=== PATIENT | male | born 1950 | race Caucasian/White ===

== ENCOUNTER 2019-02-28 12:35 | Outpatient (CLI) | payer OTHER | END 2019-02-28 23:59 | disposition home or self-care (01) | LOC: CARD 12:35 | PROVIDERS: ATTEND Family Medicine | DX: R41.0 Disorientation, unspecified (principal); I10 Essential (primary) hypertension; Z79.82 Long term (current) use of aspirin; Z79.899 Other long term (current) drug therapy | CPT/HCPCS: 95819 ==